=== PATIENT | female | born 1955 | race Caucasian/White ===

== ENCOUNTER 2023-02-02 12:22 | Day surgery (SDC) | payer MEDICARE, SELFPAY ==
[2023-02-02] MEDS: Tropicam./Phenyleph. (1/2.5%) 5 ML BTL OS ×3 (13:35→13:46)
[2023-02-02 13:40] VITALS: BP 140/93; PULSE 88; RESP 17; TEMP 36.7; O2SAT 98
[2023-02-02 14:02] VITALS: BMI 30.2
--- NOTE | 2023-02-02 14:02 | W.ANESPRE ---
General Info Date of Service Date Performed: 02/02/23 Height: 5 ft 4 in Weight: 79.9 kg Body Mass Index (BMI): 30.2 Surgical Procedure: Operation Date: 02/02/23 16:40 Proposed Procedure Side Surgeon p Cataract Extraction with IOL Implant w/Glaucoma Stent Left El Davalos MD Meds Allergies and Home Medications Allergies Allergy/AdvReac Type Severity Reaction Status Date / Time No Known Allergies Allergy Unverified 02/02/23 13:33 Home Medication Medication Instructions Recorded levothyroxine 125 mcg tablet 125 mcg PO DAILY 06/06/15 lisinopril 40 mg tablet 40 mg PO DAILY 06/06/15 naproxen 500 mg tablet 500 mg PO BID #20 tabs 06/06/15 amlodipine 10 mg tablet 10 mg PO DAILY 02/01/23 apixaban 5 mg tablet (Eliquis) 5 mg PO DAILY 02/01/23 atorvastatin 40 mg tablet 40 mg PO DAILY 02/01/23 clopidogrel 75 mg tablet 75 mg PO DAILY 02/01/23 fluoxetine 20 mg capsule 20 mg PO DAILY 02/01/23 pregabalin 25 mg capsule 25 mg PO DAILY 02/01/23 Current Visit Medications: Current Medications Generic Name Dose Route Start Last Admin Trade Name Freq PRN Reason Stop Dose Admin Acetaminophen 1,000 mg 02/02/23 06:00 Acetaminophen 500 Mg Tab PO 03/04/23 05:59 Q4H PRN PRN Balanced Salt Solution 500 ml 02/02/23 06:00 Balanced Salt Soln.-Plus 500 Ml Bag OP 03/04/23 05:59 DIRECTED [facility] Miscellaneous Medication 0 ml 02/02/23 06:00 Prednisolone 1%, Moxifloxacin 0.5%, Nepafenac 0.1% 5ml Btl OS 03/04/23 05:59 DIRECTED [facility] Miscellaneous Medication 0 ml 02/02/23 06:00 02/02/23 13:46 Tropicam./Phenyleph. (1/2.5%) 5 Ml Btl OS 03/04/23 05:59 1 drp DIRECTED [facility] Administration Tetracaine HCl 0 ml 02/02/23 06:00 Tetracaine 0.5% 4 Ml Btl OS 03/04/23 05:59 DIRECTED [facility] PFSH Active Problems Active Problems: Problem Status Onset Code Cortical age-related cataract, left eye H25.012 Nuclear age-related cataract, left eye H25.12 Medical History Medical History Vitamin B12 deficiency Type 2 diabetes mellitus Tremor Thalamic stroke Lumbosacral radiculopathy Left sided lacunar infarction Hypothyroidism Hyponatremia Diastolic dysfunction Depression with anxiety CVA (cerebral vascular accident) ischarged from neuro care Cancer thyroid Diabetes Hypertension Surgical History Surgical History History of bunionectomy Hx of appendectomy Status post laser trabeculoplasty of eye H/O wrist surgery Hx of cataract surgery Tobacco Smoking/Tobacco Use Status: Current every day Tobacco Type: cigarettes Years smoked: 40 Alcohol Alcohol Intake: current Alcohol intake frequency: a few times a week Alcohol type: hard liquor Substance Use Substance use: Never Substance use type: does not use Vital Signs and Lab Results Vital Signs Most Recent Vital Signs in EMR: Most Recent Vital Signs Temp Pulse Resp BP Pulse Ox 36.7 C 88 17 140/93 H 98 02/02/23 13:40 02/02/23 13:40 02/02/23 13:40 02/02/23 13:40 02/02/23 13:40 Lab Results Blood Type / Crossmatch: No Data to Display Complete Blood Count: No Data to Display Complete Metabolic Panel: No Data to Display Liver Function Panel: No Data to Display Coagulation Panel: No Data to Display Cardiac Panel: No Data to Display Arterial Blood Gas: No Data to Display Venous Blood Gas: No Data to Display Pancreas Panel: No Data to Display Thyroid Panel: No Data to Display Infectious Disease: No Data to Display Blood Cultures: No Data to Display Toxicology Panel: No Data to Display Anesthesia Assessment and Plan Anesthesia History Personal History: No History of Anesthesia Complications Family History: No Family History of Anesthesia Complications Exercise Tolerance Exercise Tolerance: Metabolic Equivalents>4 Pertinent Negatives Pertinent Negatives: No Symptoms of GERD Cardiac & Pulmonary Exam Cardiac Exam: Normal S1/S2 Heart Sounds Pulmonary Exam: Clear Bilateral Breath Sounds Implantable Cardiac Device Does patient have a Pacemaker or an ICD?: No Airway Exam Known Difficult Airway: No Mallampati Class: 2 Mouth Opening: Normal (> 3cm) Thyromental Distance: Greater than 3 cm Neck Range of Motion: Full ROM Neck Circumference: Normal Teeth Condition: Normal Dentition ASA Classification ASA Score: ASA 3 Emergency Case?: No NPO Status NPO Status: NPO Clears >2 hours, Solids >8 hours Anesthesia Plan Resuscitation Status: Full Code Anesthesia Technique: MAC Anesthesia Airway Planned: Natural Airway Monitors Used: Standard Monitors
[2023-02-02] MEDS: Trypan Blue 0.06% 0.5 ML SYR (14:16)
[2023-02-02] MEDS: Balanced Salt Soln.-PLUS 500 ML BAG OP (14:17)
[2023-02-02] MEDS: Lidocaine 1% Pres-Free 5 ML VIAL (14:18)
[2023-02-02] MEDS: Tetracaine 0.5% 4 ML BTL OS (14:18)
[2023-02-02] MEDS: Duovisc Viscoelastic System EACH 1 EACH (14:18)
[2023-02-02] MEDS: Phenylephrine/Lidocaine (15/10) MG/ML 1 ML VIAL (14:20)
[2023-02-02] MEDS: Povidone-Iodine Ophth 30 ML BTL (14:20)
--- NOTE | 2023-02-02 14:39 | W.PM.DSUDISC ---
Date of service: 02/02/23 Time of Service: 14:39 Discharge Plan Disposition Patient Disposition: Home Discharge Details Attending Provider: El Davalos Primary Care Provider: Chrissy Noguera Home Meds and New Rx's Prescriptions: No Action levothyroxine 125 MCG tablet 125 mcg PO DAILY lisinopril 40 MG tablet 40 mg PO DAILY naproxen 500 MG tablet 500 mg PO BID Qty: 20 1RF clopidogrel 75 mg tablet 75 mg PO DAILY Patient Comments: TAKE ONE TABLET BY MOUTH ONCE DAILY amlodipine 10 mg tablet 10 mg PO DAILY fluoxetine 20 mg capsule 20 mg PO DAILY Patient Comments: TAKE ONE CAPSULE BY MOUTH ONCE DAILY pregabalin 25 mg capsule 25 mg PO DAILY Eliquis 5 mg tablet 5 mg PO DAILY Patient Comments: TAKE ONE TABLET BY MOUTH TWICE DAILY atorvastatin 40 mg tablet 40 mg PO DAILY Discharge Instructions Stand Alone Forms: Post-op Topical Cataract, Elizabeth [place] ([facility]) Discharge Orders Discharge Orders: Discharge Order (Routine); Ordered 02/02/23 Ordered By: El Davalos DS: Diagnosis Discharge Diagnosis (1) Cortical age-related cataract, left eye: Status: Resolved (2) Nuclear age-related cataract, left eye: Status: Resolved (3) Primary open-angle glaucoma, left eye, stage unspecified: Status: Chronic
[2023-02-02 14:40] VITALS: BP 139/79; PULSE 80; RESP 18; TEMP 36.7; O2SAT 98
--- NOTE | 2023-02-02 14:41 | ROE_ITS ---
Date of service: 02/02/23 Time of Service: 14:41 Operative Note Operative Note DATE OF PROCEDURE: 02/02/23 PRE-OP DIAGNOSIS: Nuclear/cortical cataract, left eye Primary open-angle glaucoma, left eye, stage unspecified POST-OP DIAGNOSIS: same PROCEDURE: Cataract extraction using phacoemulsification with intraocular lens implant, left eye Implantation of mulitple trabecular micro-bypass stents SURGEON: El Davalos ANESTHESIA TYPE: Local By Surgeon and MAC Refer to Anesthesia Record PATHOLOGY: none sent COMPLICATIONS: None Patient was transported to: same day Patient's condition: stable Implants: Huseyin Clareon [id number] Glaukos iStents Indications: Progressive decreased vision due to cataract, left eye Primary open angle glaucoma, left eye Procedure Description: CATARACT SURGERY OPERATIVE REPORT PREOPERATIVE DIAGNOSIS: Nuclear/cortical cataract, left eye Primary open-angle glaucoma, left eye, stage unspecified POSTOPERATIVE DIAGNOSIS: Same OPERATION: 1. Cataract extraction using phacoemulsification with posterior chamber intraocular lens implant, left eye. 2. Insertion of multiple anterior segment aqueous drainage devices (Glaukos iStent) into trabecular meshwork, left eye IOL: IOL Fabric Lay Out Worker/Model: Huseyin Clareon CCA0T0 IOL Power: + 22.5 diopters IOL Serial Number: [id number] Optic Diameter: 6.0mm Haptic/Overall Diameter: 13.0mm PHACO INFO: Huseyin Centurion Vision System with OZil and Active Fluidics Cumulative Dispersed Energy (CDE): 13.39 seconds TRABECULAR MICRO-BYPASS STENT INFO: Glaukos iStent x 3 Reference Number: [id number] Serial Number: [id number] SURGEON: El Davalos MD, BANDAR ANESTHESIA: Monitored Anesthesia Care (MAC), with local sub-tenon's anesthetic infiltration COMPLICATIONS: None SPECIMENS: None INDICATIONS FOR PROCEDURE: The patient is a 67-year-old lady with history of primary open-angle glaucoma in both eyes, unspecified stage, with bilateral cataracts. She has previously undergone cataract surgery in the right eye last year. She is doing well postoperatively. She has now developed a symptomatic nuclear/cortical cataract in the left eye and desires cataract surgery there and attempt to improve and maximize her vision. In addition, she has primary open-angle glaucoma, managed on 2 topical medications. Trabecular micro-bypass stent's are planned and attempt to reduce her dependency on topical medications. See office notes for detailed information. PROCEDURE: The correct surgical eye was identified and marked as the left eye and the pupil was dilated in the preoperative area using mydriatics and cycloplegics. The dilated pupil size was 5.0 mm. Oral sedation was administered in the form of an Imprimis MKO Melt (midazolam 3mg/ketamine 25mg/ondansetron 2mg). The patient was brought to the operating room where cardiopulmonary monitoring was instituted and surgical time-out was performed, confirming the correct operative eye and IOL power. Topical anesthesia was administered and ophthalmic povidone-iodine 5% was instilled into the conjunctival fornices. The elena-ocular area was prepped with Betadine 10% solution and draped in the usual sterile fashion for intraocular surgery, including an aperture drape. A Tegaderm transparent film dressing was cut in half and used to cover the lashes and lid margins. Care was taken to sequester the lashes and lid margins under the Tegaderm dressing. A lid speculum was placed between the lids of the operative eye and the Huseyin LuxOR Revalia operating microscope was maneuvered into position. Elayne scissors were then used to make a conjunctival buttonhole approximately 6mm posterior to the limbus in the inferonasal quadrant. Blunt dissection was carried out to expose bare sclera, and a blunt-tipped sub-tenon?s anesthesia cannula was introduced and passed posteriorly along the globe where non- preserved plain lidocaine was injected into posterior sub-Tenon?s space. A sideport knife was used to make a paracentesis port superio rly/superiortemporally. VisionBlue was injected into the anterior chamber and allowed to sit for 20 seconds. Intraocular phenylephrine/lidocaine was injected into the anterior chamber. The anterior chamber was then filled with viscoelastic. A keratome knife was used to construct a clear corneal tunnel extending 2.0mm into clear cornea. . A flap was raised on the anterior capsule and capsulorhexis forceps were used to complete a continuous curvilinear capsulorhexis of 5.0 mm. Balanced salt solution was then used to perform cortical cleaving hydrodissection and nuclear hydrodelineation until the lens could be freely rotated within the capsular bag. The lens nucleus was then disassembled and removed within the capsular bag and iris plane using phacoemulsification. Residual cortical material was removed using the 45-degree angled silicone I/A tip with 0.3mm port. The posterior capsule was carefully polished to remove as much residual lens epithelial cells as safely possible. The capsular bag was then inflated and the anterior chamber deepened with viscoelastic. The lens implant described above was inserted into the capsular bag using the Huseyin Autonome pre-loaded injector. A Kuglen hook was used to dial the IOL into position. The anterior chamber was then slightly over-filled with viscoelastic. The microsope and the patient's head were tilted into the ideal position for viewing of the anterior chamber angle. Viscoelastic was placed on the cornea followed by a surgical gonionlens, and the anterior chamber angle landmarks were identified. The Serious [place] iStent injection handpiece was introduced into the anterior chamber and the insertion sleeve was retracted. The trocar was advanced through the central portion of the trabecular meshwork and into the back wall of Schlemm's canal in the nasal quadrant, with care taken to ensure the micro- insertion tube was perpendicular to the trabecular meshwork. The trabecular meshwork was lightly dimpled and the stent was injected without difficulty. The same procedure was then performed in the inferiornasal quradrant. A third stent was then injected into the superiornasal quadrant. The stents were then examined and noted to be in good position within the trabecular meshwork. A mild to moderate amount of blood reflux through the stent apertures was noted. The microscope and the patients head were returned to the normal coaxial position. Viscoelatic was then removed from the anterior chamber using the I/A handpiece. Blanching of the deep conjunctival vessels was noted nasally during removal of viscoelastic. The lens implant was noted to center nicely within the capsular bag. The incisions were stromally hydrated, and the anterior chamber was reformed using BSS. Then 0.5cc of moxifloxacin 1.0mg/ml were injected into the capsular bag and anterior chamber. The incisions were checked with a Weck spear and found to be secure. Several drops of ophthalmic povidone-iodine 5% were then applied to the eye followed by two drops of Imprimis combination prednisolone/moxifloxacin/nepafenac solution. The drapes were removed and a clear plastic protective eye shield was placed over the eye. The patient was then returned to Same Day Surgery in stable condition..
[2023-02-02 15:10] VITALS: BP 132/75; PULSE 85; RESP 17; TEMP 37; O2SAT 98
--- NOTE | 2023-02-02 16:01 | W.ANESPOSTOP ---
Postoperative Evaluation Date, Time and Location Date Performed: 02/02/23 Time Performed: 14:42 Patient Location: Day Surgery Unit Vital Signs Most Recent Imported Vital Signs: Most Recent Vital Signs Temp Pulse Resp BP Pulse Ox 36.7 C 80 18 139/79 98 02/02/23 14:40 02/02/23 14:40 02/02/23 14:40 02/02/23 14:40 02/02/23 14:40 Pain Score Most Recent Pain Score: Most Recent Pain Score Pain Level 0 02/02/23 14:40 Assessment Mental Status: Awake (Alert & Oriented to Patient Baseline) Airway and Respiratory Function: Patent airway with normal (patient baseline) respiratory exam Cardiovascular Function: Hemodynamically Stable Hydration Status: Adequately Hydrated Nausea & Vomiting: No Nausea or Vomiting Pain: Pt. Denies Any Pain Peripheral Nerve Block: Patient did not receive a nerve block
== END 2023-02-02 15:20 | disposition home or self-care (01) ==
LOC: SUR 12:25
PROVIDERS: PCP Family Medicine; Visit Provider Ophthalmology
PROC: (CPT 66991; principal; 2023-02-02 16:30)
DX: H25.012 Cortical age-related cataract, left eye (principal); H25.12 Age-related nuclear cataract, left eye; H40.1121 Primary open-angle glaucoma, left eye, mild stage; I10 Essential (primary) hypertension; Z98.41 Cataract extraction status, right eye
CPT/HCPCS: 66991; 00123; V2632